=== PATIENT | female | born 1960 | race Caucasian/White ===

== ENCOUNTER 2022-04-16 09:18 | Day surgery (SDC) | payer BC ==
[2022-04-09 15:38] VITALS: BMI 25.2
[2022-04-16] MEDS ORDERED: BUPIVACAINE HCL/PF 2.5 MG/ML - 30 ML VIAL IJ ONE (10:40)
[2022-04-16] MEDS ORDERED: MIDAZOLAM HCL 2 MG/2 ML SINGLE DOSE VIAL ONE (11:04)
[2022-04-16] MEDS ORDERED: SUCCINYLCHOLINE CHLORIDE 200 MG/10 ML SYRINGE ONE (11:04)
[2022-04-16] MEDS ORDERED: PROPOFOL 20 ML ONE ×2 (11:04)
[2022-04-16] MEDS ORDERED: DEXAMETHASONE SOD PHOSPHATE 4 MG/1 ML VIAL ONE (11:06)
[2022-04-16] MEDS ORDERED: ONDANSETRON 4 MG/2 ML VIAL ONE (11:06)
[2022-04-16] MEDS ORDERED: ROCURONIUM BROMIDE 50 MG/5 ML SYRINGE ONE (11:06)
[2022-04-16] MEDS ORDERED: KETOROLAC TROMETHAMINE 30 MG/1 ML VIAL ONE (11:06)
[2022-04-16] MEDS ORDERED: ceFAZolin SODIUM 1 GM VIAL ONE (11:06)
[2022-04-16] MEDS ORDERED: LIDOCAINE HCL 2% JELLY 10 ML CARTRIDGE ONE (11:06)
[2022-04-16] MEDS ORDERED: GLYCOPYRROLATE 0.2 MG/1 ML VIAL ONE (12:17)
[2022-04-16] MEDS ORDERED: NEOSTIGMINE METHYLSULFATE 0.5 MG/1 ML - 10 ML MDV ONE (12:17)
[2022-04-16] MEDS ORDERED: oxyCODONE HCL 5 MG TABLET PO PRN ×3 (12:23→12:39)
[2022-04-16] MEDS ORDERED: ONDANSETRON 4 MG/2 ML VIAL IVPUSH PRN ×2 (12:23→12:39)
[2022-04-16] MEDS ORDERED: SODIUM CHLORIDE 1,000 ML IV SCH (12:30)
[2022-04-16] MEDS ORDERED: PROMETHAZINE HCL 25 MG/1 ML VIAL IVPUSH PRN (12:39)
[2022-04-16] MEDS ORDERED: oxyCODONE HCL 5 MG TABLET ONE (13:24)
[2022-04-16 13:29] VITALS: RESP 18; TEMP 97.2
[2022-04-16 13:51] VITALS: BP 142/61; PULSE 58
[2022-04-16] MEDS ORDERED: FAMOTIDINE 20 MG/50 ML IVPB 20 MG/50 ML MG IVPB SCH (22:00)
== END 2022-04-16 14:30 | disposition home or self-care (01) ==
LOC: FASU 09:18
PROVIDERS: ATTEND Surgery
PROC: 0DV60CZ Restriction of Stomach with Extraluminal Device, Open Approach (ICD-10-PCS; 2022-04-16)
PROC: 0DP60CZ Removal of Extraluminal Device from Stomach, Open Approach (ICD-10-PCS; principal; 2022-04-16 11:46)
DX: T85.518A Breakdown (mechanical) of other gastrointestinal prosthetic devices, implants and grafts, initial encounter (principal); Y73.3 Surgical instruments, materials and gastroenterology and urology devices (including sutures) associated with adverse incidents; Y93.89 Activity, other specified; Y92.89 Other specified places as the place of occurrence of the external cause; K95.09 Other complications of gastric band procedure; R10.11 Right upper quadrant pain
CPT/HCPCS: 88304-TC; 94760

== ENCOUNTER 2023-01-03 07:12 | Day surgery (SDC) | payer BC ==
[2022-12-27 09:06] VITALS: BMI 23.5
[2023-01-03] MEDS ORDERED: BUPIVACAINE HCL/PF 0.25% (2.5MG/ML) 10 ML VIAL ONE (08:31)
[2023-01-03] MEDS ORDERED: SUCCINYLCHOLINE CHLORIDE 200 MG/10 ML SYRINGE ONE (08:35)
[2023-01-03] MEDS ORDERED: PROPOFOL 20 ML ONE ×2 (08:35→09:51)
[2023-01-03] MEDS ORDERED: KETOROLAC TROMETHAMINE 30 MG/1 ML VIAL ONE (08:36)
[2023-01-03] MEDS ORDERED: ONDANSETRON 4 MG/2 ML VIAL ONE (08:36)
[2023-01-03] MEDS ORDERED: ROCURONIUM BROMIDE 50 MG/5 ML SYRINGE ONE (08:37)
[2023-01-03] MEDS ORDERED: FENTANYL CITRATE/PF 50 MCG/ML VIAL ONE (08:48)
[2023-01-03] MEDS ORDERED: MIDAZOLAM HCL 2 MG/2 ML SINGLE DOSE VIAL ONE (08:48)
[2023-01-03] MEDS ORDERED: BUPIVACAINE HCL/PF 0.25% (2.5MG/ML) 10 ML VIAL IJ ONE (09:35)
[2023-01-03] MEDS ORDERED: oxyCODONE HCL 5 MG TABLET PO PRN (09:52)
[2023-01-03] MEDS ORDERED: ONDANSETRON 4 MG/2 ML VIAL IVPUSH PRN (09:52)
[2023-01-03] MEDS ORDERED: SODIUM CHLORIDE 1,000 ML IV SCH (10:00)
[2023-01-03] MEDS ORDERED: FAMOTIDINE 20 MG/50 ML IVPB 20 MG/50 ML MG IVPB SCH (10:00)
[2023-01-03] MEDS ORDERED: FAMOTIDINE 20 MG PREMIXED IVPB IVPB ONE (10:10)
[2023-01-03] MEDS ORDERED: LACTATED RINGERS SOLUTION 1,000 ML IV SCH (10:15)
[2023-01-03 10:51] VITALS: PULSE 66; RESP 16; TEMP 97.7
[2023-01-03 11:13] VITALS: BP 128/67
== END 2023-01-03 13:15 | disposition home or self-care (01) ==
LOC: FASU 07:12
PROVIDERS: ATTEND Surgery
PROC: 0DW60CZ Revision of Extraluminal Device in Stomach, Open Approach (ICD-10-PCS; principal; 2023-01-03 09:24)
DX: T85.518A Breakdown (mechanical) of other gastrointestinal prosthetic devices, implants and grafts, initial encounter (principal); K95.09 Other complications of gastric band procedure; R10.9 Unspecified abdominal pain; Y73.3 Surgical instruments, materials and gastroenterology and urology devices (including sutures) associated with adverse incidents; Y93.89 Activity, other specified; Y92.89 Other specified places as the place of occurrence of the external cause
CPT/HCPCS: 94760

== ENCOUNTER 2023-12-26 07:48 | Day surgery (SDC) | payer OTHER, BC ==
[2023-12-19 09:23] VITALS: BMI 24.3
[2023-12-26] MEDS ORDERED: CEFAZOLIN SODIUM 2 GM in DEXTROSE 5%-WATER 100 ML IVPB ONE (08:02)
[2023-12-26] MEDS ORDERED: BUPIVACAINE HCL/PF 2.5 MG/ML - 30 ML VIAL IJ ONE (09:10)
[2023-12-26] MEDS ORDERED: MIDAZOLAM HCL 2 MG/2 ML SINGLE DOSE VIAL ONE (09:42)
[2023-12-26] MEDS ORDERED: ceFAZolin SODIUM 1 GM VIAL ONE (10:11)
[2023-12-26] MEDS ORDERED: ONDANSETRON 4 MG/2 ML VIAL IVPUSH PRN (11:03)
[2023-12-26] MEDS ORDERED: SODIUM CHLORIDE 1,000 ML IV SCH (11:15)
[2023-12-26] MEDS ORDERED: FENTANYL CITRATE/PF 50 MCG/ML VIAL ONE (11:26)
[2023-12-26] MEDS ORDERED: LACTATED RINGERS SOLUTION 1,000 ML IV SCH (11:30)
[2023-12-26 12:16] VITALS: TEMP 97
[2023-12-26] MEDS ORDERED: oxyCODONE HCL 5 MG TABLET ONE (12:20)
[2023-12-26] MEDS: oxyCODONE HCL 5 MG TABLET PO PRN (12:20)
[2023-12-26 12:50] VITALS: BP 123/86; PULSE 56; RESP 20
[2023-12-26] MEDS ORDERED: FAMOTIDINE 20 MG/50 ML IVPB 20 MG/50 ML MG IVPB SCH (22:00)
== END 2023-12-26 13:37 | disposition home or self-care (01) ==
LOC: FASUSAT 07:48
PROVIDERS: ATTEND Surgery
PROC: 0DV60CZ Restriction of Stomach with Extraluminal Device, Open Approach (ICD-10-PCS; 2023-12-26)
PROC: 0DP60CZ Removal of Extraluminal Device from Stomach, Open Approach (ICD-10-PCS; principal; 2023-12-26 10:11)
DX: T85.518A Breakdown (mechanical) of other gastrointestinal prosthetic devices, implants and grafts, initial encounter (principal); Y73.3 Surgical instruments, materials and gastroenterology and urology devices (including sutures) associated with adverse incidents; Y93.89 Activity, other specified; Y92.89 Other specified places as the place of occurrence of the external cause
CPT/HCPCS: 88300-TC; 93005; 93010; 94760; C1889